=== PATIENT | female | born 1950 | race Caucasian/White ===

== ENCOUNTER 2016-10-03 11:19 | Day surgery (SDC) | payer MEDICARE ==
[~2016-10-03 11:19] MED LIST: Buffered Lidocaine 0.9% SYRIN* 5 ML/SYR SYRINGE INTRADERM ONE; Buffered Lidocaine 0.9% SYRIN* 5 ML/SYR SYRINGE ONE; Famotidine IV* 10 MG/ML 2 ML (20 mg) IV ONE; Famotidine IV* 10 MG/ML 2 ML (20 mg) ONE
[2016-10-03] MEDS ORDERED: DiMENhydriNATE IV* 50 MG/ML VIAL IV PUSH PRN (14:11)
[2016-10-03] MEDS ORDERED: Acetaminophen TAB* 325 MG PO PRN (14:11)
[2016-10-03] MEDS ORDERED: Midazolam* 1 MG/ML 5 ML VIAL (5 MG) ONE (14:39)
[2016-10-03] MEDS ORDERED: Ondansetron INJ* 2 MG/ML VIAL ONE (14:39)
[2016-10-03] MEDS ORDERED: Propofol* 10 MG/ML 20 ML BTL IV PUSH ONE ×2 (14:39→15:38)
[2016-10-03] MEDS ORDERED: Lidocaine 2% PF * 5 ML VIAL ONE (14:39)
[2016-10-03] MEDS ORDERED: fentaNYL* 50 MCG/ML 2 ML VIAL (100 MCG VIAL) ONE (14:40)
[2016-10-03 17:24] VITALS: BP 137/76
--- NOTE | 2016-10-04 03:52 | PRO ---
CC: Rut Lujan MD * DATE OF PROCEDURE: 10/03/16 [facility] PROCEDURE: Colonoscopy. MEDICINES: IV propofol administered by Anesthesiology. NARRATIVE: This is a very pleasant 65-year-old woman with a long-term history of constipation here for a screening colonoscopy. She had an attempted colonoscopy years ago, which was incomplete. The patient also experienced pain during that procedure. For these reasons, colonoscopy with anesthesia is being pursued. DESCRIPTION OF PROCEDURE: After the procedure was discussed with the patient, risks and benefits were outlined, written consent was obtained. The patient was placed in the left lateral decubitus position, and a rectal exam was performed. The rectal exam was normal without any palpable abnormality. At that point, colonoscopy was carried out. A video adult flexible colonoscope was inserted anally and advanced very carefully into the cecum. The cecum was identified by the appendiceal orifice and the ileocecal valve. The terminal ileum was briefly intubated. The quality of the preparation was good. The patient tolerated the procedure well and there were no immediate complications. FINDINGS: Colonoscopy into the distal terminal ileum was performed. The ileum was inspected for about 10 cm and was normal. The colon was thereafter very carefully inspected. The colonic mucosa was normal. There was no evidence of polyp. The submucosal vascular pattern was normal. Rectum was viewed both in the forward view and retroflex positioning and was normal. CONCLUSION: Normal colonoscopy into the terminal ileum. RECOMMENDATION: The patient is average risk for colorectal cancer and for that reason, I would recommend a followup screening colonoscopy in 10 years. Thank you very much, Dr. Lujan, for referring this kind woman to me. [id number]/[facility] #: [id number] [facility]
== END 2016-10-03 17:26 | disposition home or self-care (01) ==
LOC: OR 11:19
PROVIDERS: ATTEND Internal Medicine Gastroenterology
DX: Z12.11 Encounter for screening for malignant neoplasm of colon (principal); K59.09 Other constipation; D64.9 Anemia, unspecified; K21.9 Gastro-esophageal reflux disease without esophagitis; Z85.3 Personal history of malignant neoplasm of breast
CPT/HCPCS: J2250; J2405; J2704; J3010

== ENCOUNTER 2017-02-21 01:34 | Emergency (ER) | payer MEDICARE ==
[2017-02-21] MEDS ORDERED: Naproxen TAB* 250 MG PO ONE (03:39)
[2017-02-21 05:32] VITALS: BP 108/57
--- NOTE | 2017-02-21 06:55 | ED ---
Perri Mata Gabriel, scribed for Ky Yanes MD on 02/21/17 at 0338 . Back Pain - HPI Summary HPI Summary: This patient is a 66 year old F presenting to [facility] with a chief complaint of back pain since yesterday. The patient rates the pain 2/10 in severity. Symptoms aggravated by bending down and bearing down. Patient denies pain currently. She recently lifted a case of bottled water when she hurt it, she has had chronic back pain for a year. - History of Current Complaint Chief Complaint: EDBackInjuryPain Stated Complaint: BACK PAIN Time Seen by Provider: 02/21/17 03:27 Hx Obtained From: Patient Onset/Duration: Lasting Days - 1, Resolved Onset/Duration: Resolved Timing: Constant Pain Intensity: 2 Pain Scale Used: 0-10 Numeric Aggravating Symptom(s): Movement, Bending - Allergies/Home Medications Allergies/Adverse Reactions: Allergies Allergy/AdvReac Type Severity Reaction Status Date / Time ACROMYCIN Allergy Unknown Uncoded 10/03/16 11:48 Reaction Details PMH/Surg Hx/FS Hx/Imm Hx Previously Healthy: No Endocrine/Hematology History: Reports: Hx Thyroid Disease - ON MEDICATION FOR, Hx Anemia - HX OF Cardiovascular History: Reports: Other Cardiovascular Problems/Disorders - 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- PATIENT STATES WILL BE SEE PM Denies: Hx Peripheral Vascular Disease GI History: Reports: Hx Gastroesophageal Reflux Disease, Other GI Disorders - CONSTIPATION ON OCCASION Musculoskeletal History: Reports: Hx Arthritis - HAND AND WRIST- RIGHT HAND, Hx Tendonitis - HX OF Sensory History: Reports: Hx Contacts or Glasses - GLASSES Denies: Hx Hearing Aid Opthamlomology History: Reports: Hx Contacts or Glasses - GLASSES Neurological History: Reports: Hx Migraine - HX OF Psychiatric History: Reports: Hx Anxiety - ON MEDICATION FOR, Hx Depression - ON MEDICATION FOR - Cancer History Cancer Type, Location and Year: Breast cancer in left breast Hx Chemotherapy: Yes - Surgical History Surgery Procedure, Year, and Place: OVARIAN CYSTS REMOVED. OVARIES REMOVED. HERNIA REPAIR-2002. 2004-COLONOSCOPY. TONSILLECTOMY AND ADENOIDECTOMY A CHILD. EYE MUSCLE SURGERY A CHILD Hx Anesthesia Reactions: No Infectious Disease History: No Infectious Disease History: Denies: Traveled Outside the [place] in Last 30 Days - Family History Known Family History: Negative: Diabetes - Social History Alcohol Use: Rare Hx Substance Use: No Substance Use Type: Reports: None Hx Tobacco Use: No Smoking Status (MU): Never Smoked Tobacco Review of Systems Negative: Fever Positive: Other - lower back pain All Other Systems Reviewed And Are Negative: Yes Physical Exam - Summary Physical Exam Summary: Appearance: Well appearing, no pain distress Skin: warm, dry, reflects adequate perfusion Head/face: normal Eyes: EOMI, ROXANA ENT: normal Neck: supple, non-tender Back: No reproducible pain in lower back with movement or palpation, Accentuated kyphotic curve, spine has full ROM now Respiratory: CTA, breath sounds present Cardiovascular: RRR, pulses symmetrical Abdomen: non-tender, soft Bowel: present Musculoskeletal: normal, strength/ROM intact Neuro: normal, sensory motor intact, A&Ox3 Triage Information Reviewed: Yes Vital Signs On Initial Exam: Initial Vitals Temp Pulse Resp BP Pulse Ox 96.8 F 87 18 127/71 99 02/21/17 01:37 02/21/17 01:37 02/21/17 01:37 02/21/17 01:37 02/21/17 01:37 Vital Signs Reviewed: Yes - Romeo Coma Scale Coma Scale Total: 15 Diagnostics - Vital Signs Vital Signs Temp Pulse Resp BP Pulse Ox 02/21/17 01:37 96.8 F 87 18 127/71 99 - Laboratory Lab Statement: Any lab studies that have been ordered have been reviewed, and results considered in the medical decision making process. - Radiology L-spine Xray Radiology Interpretation Completed By: ED Physician - No osteolytic process, evidence of degenerative disc disease Back Pain Course/Dx - Course Course Of Treatment: pt without pain here. Back pain lately -- hx of breast CA, but reports recent scans have been neg for CA. Xray is degenerative. Try Mobic outpt. F/U closely with oncology and PMD. - Diagnoses Provider Diagnoses: Lumbar back pain, History of breast cancer Discharge - Discharge Plan Condition: Good Disposition: HOME Prescriptions: Meloxicam(NF) [Mobic(NF)] 7.5 mg PO DAILY PRN #30 tab PRN Reason: Pain - Back Patient Education Materials: Acute Low Back Pain (ED) Referrals: Rut Lujan DO [Primary Care Provider] - Additional Instructions: Inform your Primary and Oncologist that you have been having back pain. They can order additional tests as needed. Return with difficulty urinating, increased pain, numbness/weakness in the legs, worse or other concerns. The documentation as recorded by the Perri boss Gabriel accurately reflects the service I personally performed and the decisions made by me, Ky Yanes MD.
--- NOTE | 2017-02-21 08:18 | RAD ---
Indication: Low back pain 2 views of the lumbar spine demonstrates vertebral bodies to be normal in height. Retrolisthesis of L2 on 3 is noted. Degenerative disc disease at T12-L1 and L1-L2 is noted. No fracture is noted. IMPRESSION: Degenerative disc disease at T12-L1 and L1-L1-L2.
== END 2017-02-21 05:31 | disposition home or self-care (01) ==
LOC: ED 01:34
DX: M54.5 Low back pain (principal); Z85.3 Personal history of malignant neoplasm of breast; G89.29 Other chronic pain; M51.36 Other intervertebral disc degeneration, lumbar region; M51.34 Other intervertebral disc degeneration, thoracic region
CPT/HCPCS: 72100; A9270-GY